=== PATIENT | male | born 1955 | race Caucasian/White ===

== ENCOUNTER 2023-03-25 04:32 | Emergency (ER) | payer MEDICARE, BC ==
[~2023-03-25] VITALS: Ht 182.9 cm; Wt 83.9 kg
[2023-03-25 04:36] VITALS: BP_SYST 126
[2023-03-25] MEDS ORDERED: DEXAMETHASONE SOD PHOSPHATE 10 MG/ML VIAL IVP ONE (05:00)
[2023-03-25] MEDS ORDERED: KETOROLAC TROMETHAMINE 30 MG VIAL IVP ONE (05:00)
[2023-03-25] MEDS ORDERED: fentaNYL CITRATE/PF 100 MCG/2 ML AMP IVP ONE (05:00)
[2023-03-25 05:13] LABS: BASOPHILS % (AUTO) 0.5 % (0.0-2.0); EOSINOPHILS # (AUTO) 0.1 K/uL (0.0-0.4); EOSINOPHILS % (AUTO) 1.4 % (0.0-4.0); HEMATOCRIT 45.2 % (36-54); HEMOGLOBIN 15.4 g/dL (14.0-18.0); LYMPHOCYTES # (AUTO) 1.8 K/uL (1.0-5.5); LYMPHOCYTES % (AUTO) 21.3 % (20.5-51.5); MEAN CORPUSCULAR HEMOGLOBIN 30 pg (27-31); MEAN CORPUSCULAR HGB CONC 34 % (32-36); MEAN CORPUSCULAR VOLUME 89 fL (79.0-98.0); MONOCYTES # (AUTO) 0.8 K/uL (0.0-1.0); MONOCYTES % (AUTO) 9.3 % (1.7-9.3); NEUTROPHILS # (AUTO) 5.6 K/uL (1.8-7.7); NEUTROPHILS % (AUTO) 67.5 % (40.0-70.0); PLATELET COUNT (AUTO) 161 K/uL (130-430); RED BLOOD CELL COUNT(AUTO) 5.07 MIL/uL (4.2-6.2); RED CELL DISTRIBUTION WIDTH 12.8 % (9.0-15.0); WHITE BLOOD COUNT (AUTO) 8.3 K/uL (4.8-10.8)
[2023-03-25] MEDS ORDERED: BACL10TA PO (05:29)
[2023-03-25] MEDS ORDERED: NAPR-688 PO (05:29)
[2023-03-25 05:35] LABS: CALCIUM 8.7 mg/dL (8.4-11.0); CREATININE 1.16 mg/dL (0.55-1.30)
[2023-03-25 05:40] LABS: TOTAL BILIRUBIN 0.7 mg/dL (0.0-1.0)
[2023-03-25] MEDS ORDERED: MORPHINE 4 MG INJ. 4 MG/ML VIAL IVP ONE (06:15)
[2023-03-25 06:38] LABS: AMYLASE 54 U/L (0-100); LIPASE 128 U/L (73-393)
[2023-03-25 06:39] LABS: C-REACTIVE PROTEIN QUANT < 0.2 mg/dL (0-0.5)
[2023-03-25 06:39] LABS: BILIRUBIN,URINE NEGATIVE (NEGATIVE); BLOOD, URINE NEGATIVE (NEGATIVE); CLARITY/URINE CLEAR (CLEAR); COLOR,URINE YELLOW (YELLOW); GLUCOSE,URINE NEGATIVE (NEGATIVE); KETONES,URINE TRACE (NEGATIVE); LEUKOCYTE ESTERASE ,URINE NEGATIVE (NEGATIVE); NITRITE, URINE NEGATIVE (NEGATIVE); PROTEIN URINE NEGATIVE (NEGATIVE); UROBILINOGEN,URINE 0.2 (0.2-1.0)
[2023-03-25 09:02] VITALS: BP_SYST 146
== END 2023-03-25 08:55 | disposition home or self-care (01) ==
LOC: SED 04:32
DX: M54.50 Low back pain, unspecified (principal); M79.662 Pain in left lower leg; I10 Essential (primary) hypertension; Z79.899 Other long term (current) drug therapy
CPT/HCPCS: 99285; 74176; 96374; 96375; 80053; 82150; 83690; 85025; 86140; 36415; 76376; 81003; J1100; J1885; J3010; J2270

== ENCOUNTER 2023-07-31 04:23 | Emergency (ER) | payer MEDICARE, BC ==
[~2023-07-31] VITALS: Ht 180.3 cm; Wt 83.9 kg
[~2023-07-31 04:23] MED LIST: BACL10TA PO; NAPR-688 PO
[2023-07-31 04:54] VITALS: BP_SYST 126; PULSE 89; RESP 16; TEMP 97.8; O2SAT 95
[2023-07-31] MEDS ORDERED: KETOROLAC TROMETHAMINE 15 MG VIAL IM ONE (05:15)
[2023-07-31] MEDS ORDERED: ACETAMINOPHEN 500 MG TABLET PO ONE (05:15)
[2023-07-31] MEDS ORDERED: DEXAMETHASONE SOD PHOSPHATE 10 MG/ML VIAL PO ONE (05:15)
[2023-07-31] MEDS ORDERED: ACETAMINOPHEN 325 MG TABLET ONE (05:27)
[2023-07-31 06:10] VITALS: BP_SYST 121; PULSE 97; RESP 20; TEMP 98.3; O2SAT 95
== END 2023-07-31 06:49 | disposition home or self-care (01) ==
LOC: SED 04:23
DX: U07.1 COVID-19 (principal); R05.9 Cough, unspecified; R50.9 Fever, unspecified; M79.10 Myalgia, unspecified site; I10 Essential (primary) hypertension; Z88.8 Allergy status to other drugs, medicaments and biological substances; Z79.899 Other long term (current) drug therapy
CPT/HCPCS: 99283; 71045; 96372; J1100; J1885